=== PATIENT | male | born 1965 | race Caucasian/White ===

== ENCOUNTER 2021-04-03 02:30 | Emergency (ER) | payer OTHER, SELFPAY ==
[2021-04-03] VITALS (8 sets, daily range): BP systolic 129–148; BP diastolic 78–91; PULSE 82–103; RESP 19–28; TEMP 37.2; O2SAT 88–97; BMI 24.3
--- NOTE | 2021-04-03 02:48 | CT_ITS ---
STUDY: CTA CHEST REASON FOR EXAM: Male, 55 years old. hypoxia -- + covid RADIATION DOSAGE (If Supplied By Facility): CTDIvol = ( 9.92 ) mGy, DLP = ( 432.09 ) mGycm TECHNIQUE: The examination was performed with the intravenous administration of IV 100mL Isovue-370. Post-processing of the angiographic images was performed, with multiplanar reformation and 3D reconstruction. Individualized dose optimization techniques were used for this CT. COMPARISON: None. FINDINGS: Normal enhancement of the main pulmonary artery and right and left pulmonary arteries. Normal enhancement of the bilateral peripheral pulmonary arteries. There is no demonstrated pulmonary embolism. Normal thoracic aorta and visualized great vessels. There is no demonstrated aortic dissection. Normal heart and pericardium. Normal mediastinum. Normal hilar regions. Normal visualized trachea and bronchi. The lungs are well expanded. Ill-defined subpleural groundglass opacities are seen more prominent in the lung bases , may represent atypical pneumonia or viral pneumonia (COVID-19 ?). Normal pleura. Normal chest wall structures. Normal osseous structures. Normal visualized upper abdomen. CT/CTA Chest W/WO Contrast IMPRESSION: No demonstrated pulmonary embolism or arterial dissection. Ill-defined subpleural groundglass opacities are seen more prominent in the lung bases , may represent atypical pneumonia or viral pneumonia (COVID-19 ?). Electronically Signed: Azucena Warren MD at 6:00 EDT Tel , Service support ,
--- NOTE | 2021-04-03 02:48 | EKG12_ITS ---
Test Reason : SOB Blood Pressure : / mmHG Vent. Rate : 091 BPM Atrial Rate : 091 BPM P-R Int : 142 ms QRS Dur : 094 ms QT Int : 364 ms P-R-T Axes : 037 036 058 degrees QTc Int : 447 ms Normal sinus rhythm Normal ECG Confirmed by JÚNIOR FERNÁNDEZ, JOANN ([id number]), assignment desk editor HERMAN HOLLEY ([id number]) on 04/06/2021 1:18:04 PM Referred By: NOAH Confirmed By:JOANN CALLEJAS MD
--- NOTE | 2021-04-03 02:50 | EDS_ITS ---
HPI History of Present Illness Chief Complaint: Shortness of Breath Informant: patient Onset/Context/Timing Onset: Days Context: Gradual Onset Current Severity: Moderate Maximum Severity: Moderate Narrative Narrative: Patient present secondary to increasing shortness of breath. Patient developed symptoms of Covid on March 24 and tested positive on the . Yesterday he received the monoclonal antibodies at [facility]. He states he was also given IV fluids today at the hospital. Patient states is been watching his oxygen saturations at home. Tonight he got down to 84 couple times so he came in for evaluation. He does report some chest heaviness. No vomiting or diarrhea. [facility] Medical History History of testicular cancer Home Medications dexamethasone [Decadron] 6 mg PO DAILY #9 tab 04/03/21 [Rx Last Taken Unknown] Allergy/AdvReac Type Severity Reaction Status Date / Time No Known Allergies Allergy Verified 04/03/21 02:35 Social History Smoking Status: Never smoker ROS ROS ED Constitutional Constitutional ED: Denies chills Eyes Eyes: Denies change in vision ENT ENT ED: Denies sore throat Cardiovascular Cardiovascular: Reports chest pain Respiratory/Chest Respiratory/Chest: Reports cough and dyspnea Gastrointestinal Gastrointestinal: Denies abdominal pain, diarrhea, nausea or vomiting Genitourinary Genitourinary ED: Denies dysuria Musculoskeletal Musculoskeletal: Reports myalgias; Denies back pain Integumentary Denies rash Neurologic Neurologic: Denies headache(s) or weakness Allergic/Immunologic Allergic/Immunologic ED: Denies urticaria EXAM Physical Exam Const Vital Signs: 04/03/21 02:31 04/03/21 02:35 04/03/21 04:33 Temperature 99 F Temperature Source Oral Pulse Rate 96 82 Respiratory Rate 20 H 19 H Respiratory Effort Short of Breath Respiratory Pattern Tachypnea Blood Pressure 148/84 H 143/80 H Blood Pressure Mean 105 101 Pulse Ox 88 97 Oxygen Delivery Method Room Air Nasal Cannula Room Air Oxygen Flow Rate (L/min) 2 04/03/21 04:48 04/03/21 05:25 04/03/21 07:09 Temperature Temperature Source Pulse Rate 101 H 95 103 H Respiratory Rate 28 H 21 H 23 H Respiratory Effort Respiratory Pattern Blood Pressure 129/78 H 146/80 H 138/91 H Blood Pressure Mean 95 102 106 Pulse Ox 97 96 96 Oxygen Delivery Method Room Air Nasal Cannula Room Air Oxygen Flow Rate (L/min) 2 Positive well nourished and well developed General Appearance ED: well developed HEENT Reports normocephalic and head/scalp atraumatic Eyes PERRL and EOMs intact bilaterally Neck supple Chest Wall inspection of chest normal and palpation of chest normal Resp Resp Narrative: Tachypnea. Diminished lung sounds. Cardio regular rate and regular rhythm GI normal to inspection, nondistended, normoactive bowel sounds and non-tender Palpation: soft Extremity normal to inspection Neuro oriented x3 and no sensory deficits noted Sensorium / Orientation: alert Motor Exam: strength 5/5 throughout Psych mental status grossly normal Skin no rashes or lesions noted MDM MDM MDM Narrative Medical decision making narrative: Patient's O2 sat was 88% on room air after walking back to the room. He is placed on 2 L nasal cannula. Lab work and CTA chest obtained. EKG ordered. Lab Data Attestation: I reviewed the patient's lab results. Labs: Laboratory Results - last 24 hr 04/03/21 04/03/21 04/03/21 02:40 02:40 03:00 WBC 8.2 RBC 4.81 Hgb 14.0 Hct 41.8 MCV 86.9 MCH 29.1 MCHC 33.5 RDW Std Deviation 41.2 RDW Coeff of Chaka 12.9 Plt Count 265 MPV 10.4 Immature Gran % (Auto) 0.600 Neut % (Auto) 84.4 H Lymph % (Auto) 8.4 L Morrow % (Auto) 6.5 Eos % (Auto) 0.0 Baso % (Auto) 0.1 Absolute Neuts (auto) 6.9 Absolute Lymphs (auto) 0.69 L Nucleated RBC % 0 Sodium 134 L Potassium 3.6 Chloride 103 Carbon Dioxide 25.0 Anion Gap 6 BUN 10 Creatinine 0.82 Estim Creat Clear Calc 107.13 Est GFR (MDRD) Af Amer 125 Est GFR (MDRD) Non-Af 104 BUN/Creatinine Ratio 12.2 Glucose 115 H Lactic Acid 1.6 Calcium 8.5 Total Bilirubin 0.90 AST 43 H ALT 38 Alkaline Phosphatase 52 Total Protein 6.9 Albumin 2.6 L Globulin 4.3 H Albumin/Globulin Ratio 0.6 L Radiography Diagnostic Testing: Radiology Impression Chest CTA 04/03/21 02:48 IMPRESSION: No demonstrated pulmonary embolism or arterial dissection. Ill-defined subpleural groundglass opacities are seen more prominent in the lung bases , may represent atypical pneumonia or viral pneumonia (COVID-19 ?). Electronically Signed: Azucena Warren MD at 6:00 EDT Tel , Service support , EKG Initial EKG: Attestation: I personally reviewed and interpreted this EKG as follows: Interpretation: Sinus Rhythm (Sinus at 91 with no acute ischemia.) Treatment and Re-Evaluation Comments:: Test results discussed with the patient. Patient does have evidence of mild Covid pneumonia but no evidence of PE. Lab work unremarkable. Patient does qualify for home oxygen and was ambulated on 2 L. He does not decompensate with this. Patient is given dose of Decadron here. Prescription for Decadron will be sent to the pharmacy for him. He thinks he may have a prescription for this at home. He will check what he has at home first and if it is not the correct medication will picking tech the prescription from the pharmacy. Discharge Plan Triage Chief Complaint: Shortness of Breath ED Provider: Ofelia Mondragon Dx/Rx/DC Orders Instructions: Coronavirus Disease 2019 (COVID-19): Overview, Coronavirus Disease 2019 (COVID-19): Caring for Yourself or Others Prescriptions: New dexamethasone [Decadron] 6 mg tablet 6 mg PO DAILY Qty: 9 RF: 0 Primary Care Provider: Care Physician,No Primary Referrals: Nevaeh Jackson MD [STAFF PHYSICIAN] - 1-2 Weeks Care Physician,No Primary [Primary Care Provider] - Disposition Disposition: Home, Self Care
[2021-04-03 02:59] LABS: Absolute Lymphocyte Count 0.69 X10^3/uL (0.83-4.51); Absolute Neutrophil Count 6.9 X10^3/uL (2.0-7.7); Basophil# 0.01 X10^3/uL; Basophil% 0.1 % (0-1); Hematocrit 41.8 % (40-54); Lymphocyte # 0.69 X10^3/ul (0.83-4.51); Lymphocyte % 8.4 % (19-41); Mean Corp Hgb Conc 33.5 g/dL (32-36); Mean Corpuscular Hgb 29.1 pg (27.0-32.0); Mean Corpuscular Volume 86.9 fL (80-94); Mean Platelet Vol. 10.4 fl (6.2-12.0); Monocyte# 0.53 X10^3/uL; Monocyte% 6.5 % (0-10); NRBC Flagged by Analyzer 0 % (0-5); Neutrophil # 6.91 X10^3/uL (2.7-7.7); Neutrophil % 84.4 % (47-70); Platelet Count 265 K/mm3 (150-450); RBC Distribution Width CV 12.9 % (11.6-14.6); RBC Distribution Width SD 41.2 fl (35.1-43.9); Red Blood Count 4.81 M/mm3 (4.6-6.2); White Blood Count 8.2 K/mm3 (4.4-11.0)
[2021-04-03 03:50] LABS: ALB/GLOB Ratio 0.6 RATIO (0.9-2.4); AST(SGOT) 43 U/L (15-37); Alanine Aminotransfer ALT/SGPT 38 U/L (16-61); Albumin, Serum 2.6 g/dL (3.2-5.0); Alkaline Phosphatase 52 U/L (45-117); Anion Gap 6 (5-15); BUN 10 mg/dL (7-18); BUN/Creat Ratio 12.2 RATIO (10-20); Calcium,Total 8.5 mg/dL (8.5-10.1); Chloride 103 mmol/L (98-107); Creatinine, Serum 0.82 mg/dL (0.70-1.30); EST Glomerular Filtration Rate 104 mL/min (>60); Est Glom Filt Rate - Afr Amer 125 mL/min (>60); Estimated Creatinine Clearance 107.13 ml/min; Globulin 4.3 g/dL (2.2-4.2); Glucose 115 mg/dL (74-106); Potassium 3.6 mmol/L (3.5-5.1); Protein, Total 6.9 g/dL (6.4-8.2); Sodium Level 134 mmol/L (136-145)
[2021-04-03 04:04] LABS: Lactic Acid 1.6 mmol/L (0.4-1.9)
[2021-04-03] MEDS: dexAMETHasone 4 MG Tablet 6 MG PO (07:08)
== END 2021-04-03 09:08 | disposition home or self-care (01) ==
PROVIDERS: Emergency Provider Emergency Medicine
DX: U07.1 COVID-19 (principal)
CPT/HCPCS: 71275; 80053; 83605; 85025; 87040; 93005; 99285; Q9967; A4216

== ENCOUNTER → 2022-01-06 | Outpatient (CLI) | payer OTHER, SELFPAY ==
[2022-01-06 10:21] LABS: Anion Gap 5 (5-15); BUN 12 mg/dL (7-18); BUN/Creat Ratio 13.1 RATIO (10-20); Calcium,Total 9.2 mg/dL (8.5-10.1); Chloride 107 mmol/L (98-107); Cholesterol 200 mg/dL (200); Creatinine, Serum 0.92 mg/dL (0.70-1.30); EST Glomerular Filtration Rate 90 mL/min (>60); Est Glom Filt Rate - Afr Amer 109 mL/min (>60); Glucose 97 mg/dL (74-106); High Density Lipoprotein 46 mg/dL; PSA,Total - Annual Screen 3.37 ng/mL (0.00-4.00); Potassium 4.6 mmol/L (3.5-5.1); Sodium Level 141 mmol/L (136-145); Triglycerides 120 mg/dL; Very Low Density Lipoprotein 24 mg/dL (5-40)
== END | disposition home or self-care (01) ==
LOC: MFPLAB 08:53
PROVIDERS: Visit Provider Family Medicine
DX: Z13.1 Encounter for screening for diabetes mellitus (principal); Z13.220 Encounter for screening for lipoid disorders; Z12.5 Encounter for screening for malignant neoplasm of prostate
CPT/HCPCS: 36415; 80048; 80061; 84153; G0103